=== PATIENT | female | born 2000 | race Caucasian/White ===

== ENCOUNTER 2023-08-22 16:14 | Observation (INO) | payer OTHER ==
[2023-08-22 17:08] VITALS: BMI 59.2
[2023-08-22] MEDS ORDERED: hydrALAZINE 20 MG/ML VIAL SLOW IVP PRN (17:28)
[2023-08-22] MEDS ORDERED: Ondansetron PF 4 MG/2 ML Vial IVP PRN (17:28)
[2023-08-22] MEDS ORDERED: Acetaminophen 500 MG TAB PO PRN (17:28)
[2023-08-22] MEDS ORDERED: Promethazine HCl 25 MG/ML VIAL IM PRN (17:28)
[2023-08-22 18:28] LABS: Hematocrit 33.4 % (34.9-44.5); Hemoglobin 11.4 g/dL (12.0-15.5); Mean Corpuscular HGB CONC 34.1 g/dL (32.0-36.0); Mean Corpuscular Hemoglobin 27.9 pg (27.0-33.0); Mean Corpuscular Volume 81.9 fL (81.6-98.3); Mean Platelet Volume 11.1 fL (7.4-10.4); Platelet Count 359 10x3/uL (150-450); RBC Distribution Width 13.7 % (11.5-14.5); Red Blood Cell (RBC) Count 4.08 10x6/uL (3.90-5.03); White Blood Cell (WBC) Count 11.7 10x3/uL (3.5-10.5)
[2023-08-22 18:35] LABS: Glucose 103 mg/dL (70-105)
[2023-08-22 18:42] LABS: ALT (SGPT) 88 U/L (8-55); AST (SGOT) 47 U/L (5-34); Albumin 2.6 g/dL (3.5-5.0); Alkaline Phosphatase 156 U/L (40-110); Anion Gap 13 mmol/L (10-20); BUN (Urea Nitrogen) 6 mg/dL (7.0-18.7); Bilirubin, Total 0.3 mg/dL (0.2-1.2); Calc. Creatinine Clearance 340 mL/min (70-130); Calcium 8.9 mg/dL (7.8-10.44); Carbon Dioxide 18 mmol/L (22-29); Chloride 107 mmol/L (98-107); Estimated GFR 127; Globulin 3.7 g/dL (2.4-3.5); Glucose 104 mg/dL (70-105); Potassium 4.3 mmol/L (3.5-5.1); Protein, Total 6.3 g/dL (6.0-8.3); Sodium 134 mmol/L (136-145)
[2023-08-22 19:03] LABS: HBsAg Index 0.19 S/CO (0-0.99); HIV (1/2) Antibody/Antigen Non-Reactive (NonReactive); HIV 1/2 INDEX 0.08 S/CO (<1.00); Hep B Surf Ag - L&D Non-Reactive S/CO (NonReactive)
[2023-08-22 19:07] LABS: Syphilis Antibody Index 27.33 S/CO (<1.00 Non-Reactive)
[2023-08-22] MEDS: metFORMIN 500 MG TAB PO SCH (19:43)
[2023-08-22 21:29] LABS: Syphilis Antibody REACTIVE (Nonreactive)
[2023-08-23] MEDS: metFORMIN 500 MG TAB PO SCH (08:35)
[2023-08-23] MEDS: Aspirin Chewable 81 MG TAB PO SCH (08:35)
[2023-08-23 13:06] VITALS: TEMP 98.4
[2023-08-23 17:14] VITALS: BP 118/75
== END 2023-08-23 18:47 | disposition home or self-care (01) ==
LOC: CSHLD 16:14 → CSHANTE 20:30
PROVIDERS: ADMIT Student in an Organized Health Care Education/Training Program; ATTEND Student in an Organized Health Care Education/Training Program
DX: O13.3 Gestational [pregnancy-induced] hypertension without significant proteinuria, third trimester (principal); O24.419 Gestational diabetes mellitus in pregnancy, unspecified control; O98.113 Syphilis complicating pregnancy, third trimester; O99.213 Obesity complicating pregnancy, third trimester; E66.01 Morbid (severe) obesity due to excess calories; O99.283 Endocrine, nutritional and metabolic diseases complicating pregnancy, third trimester; Z3A.35 35 weeks gestation of pregnancy; Z79.899 Other long term (current) drug therapy
CPT/HCPCS: 36415; 36416; 76815; 80053; 82570; 84156; 84443; 85027; 86593; 86780; 86850; 86900; 86901; 87340; 87389; 99285; G0378

== ENCOUNTER 2024-12-20 12:11 | Inpatient (IN) | payer OTHER ==
[2024-12-20 12:34] VITALS: BMI 56.6
[2024-12-20 13:16] LABS: Protein, Urine Random Quant 24.0 mg/dL (1-14)
[2024-12-20 13:22] LABS: #Basophils 0.03 10x3/uL (0.0-0.2); #Eosinophils 0.05 10x3/uL (0.0-0.5); #Monocytes 0.43 10x3/uL (0.0-1.1); #Neutrophils 5.65 10x3/uL (1.5-8.4); %Basophils 0.4 % (0.0-2.0); %Eosinophils 0.6 % (0.0-6.0); %Lymphocytes 21.4 % (18.0-47.0); %Monocytes 5.5 % (0.0-10.0); %Neutrophils 71.8 % (40.0-75.0); Hematocrit 30.6 % (34.9-44.5); Hemoglobin 9.9 g/dL (12.0-15.5); Mean Corpuscular Hemoglobin 26.8 pg (27.0-33.0); Mean Corpuscular Volume 82.7 fL (81.6-98.3); Platelet Count 308 10x3/uL (150-450); Red Blood Cell (RBC) Count 3.70 10x6/uL (3.90-5.03); White Blood Cell (WBC) Count 7.86 10x3/uL (3.5-10.5)
[2024-12-20 13:42] LABS: ALT (SGPT) 114 U/L (Less than 34); AST (SGOT) 84 U/L (11-34); Albumin 2.5 g/dL (3.1-4.5); Alkaline Phosphatase 136 U/L (40-110); Anion Gap 11 mmol/L (10-20); BUN (Urea Nitrogen) 6 mg/dL (7.0-18.7); Bilirubin, Total 0.3 mg/dL (0.3-1.2); Calc. Creatinine Clearance 357 mL/min (70-130); Calcium 8.5 mg/dL (7.8-10.44); Carbon Dioxide 20 mmol/L (22-29); Chloride 109 mmol/L (98-107); Globulin 3.7 g/dL (2.4-3.5); Glucose 97 mg/dL (70-105); Potassium 4.0 mmol/L (3.5-5.1); Sodium 136 mmol/L (136-145)
[2024-12-20] MEDS ORDERED: Carboprost 250 MCG/ML AMP IM PRN (13:44)
[2024-12-20] MEDS ORDERED: Ondansetron PF 4 MG/2 ML Vial IVP PRN ×2 (13:44→18:32)
[2024-12-20] MEDS ORDERED: Diphenoxylate HCl/Atropine Tablet PO PRN ×2 (13:44)
[2024-12-20] MEDS ORDERED: Acetaminophen 500 MG TAB PO PRN (13:44)
[2024-12-20] MEDS ORDERED: Famotidine/PF 20 mg/2ml Vial SLOW IVP PRN (13:44)
[2024-12-20] MEDS ORDERED: hydrALAZINE 20 MG/ML VIAL SLOW IVP PRN ×3 (13:44→13:47)
[2024-12-20] MEDS ORDERED: Bicitra 30 ML UDCUP PO PRN (13:44)
[2024-12-20] MEDS ORDERED: Tranexamic Acid 1,000 MG/10 ML VIAL IVP PRN (13:44)
[2024-12-20] MEDS ORDERED: Azithromycin 500 MG in Sodium Chloride 0.9% 250 ML 250 ML IVPB SCH (13:45)
[2024-12-20] MEDS ORDERED: Oxytocin 30 units/NS 500 ML 500 ML IV SCH (13:45)
[2024-12-20] MEDS ORDERED: Calcium Gluc 4.6 MEQ/10 ML (100 MG/ML) SLOW IVP PRN (13:47)
[2024-12-20 14:40] LABS: Hep B Surf Ag - L&D Non-Reactive S/CO (NonReactive)
[2024-12-20] MEDS: Magnesium Sulfate 20 gm/500 ml 20 GM/500 ML BAG IVPB SCH (14:55)
[2024-12-20] MEDS: hydrALAZINE 20 MG/ML VIAL SLOW IVP PRN (15:04)
[2024-12-20 15:07] LABS: Syphilis Antibody Index 21.95 S/CO (<1.00 Non-Reactive)
[2024-12-20 18:30] LABS: Analyzer IN Cardio CS NICU; Critical Notified By: CP.PH; RapidComm Collect By CBN; pH (Cord, venous) 7.261 (7.250-7.350)
[2024-12-20 18:32] LABS: Analyzer IN Cardio CS NICU; Critical Notified By: CP.PH; RapidComm Collect By CBN
[2024-12-20] MEDS ORDERED: Ketorolac Tromethamine 30 MG (1 mL) VIAL IVP PRN (18:32)
[2024-12-20] MEDS ORDERED: diphenhydrAMINE 50 MG/ML VIAL IVP PRN (18:32)
[2024-12-20] MEDS ORDERED: Meperidine HCl/PF 25 MG (1 mL) VIAL SLOW IVP PRN (18:32)
[2024-12-20] MEDS ORDERED: Ketorolac Tromethamine 30 MG (1 mL) VIAL IVP SCH (18:45)
[2024-12-20] MEDS ORDERED: Communication Order-Pharmacy FS SCH (18:45)
[2024-12-20] MEDS: Ondansetron PF 4 MG/2 ML Vial IVP PRN (19:48)
[2024-12-20 22:53] LABS: Syphilis Titer 1:4 Titer (Nonreactive)
[2024-12-21] MEDS: hydrALAZINE 20 MG/ML VIAL SLOW IVP SCH (00:56)
[2024-12-21 03:32] LABS: Hematocrit 30.3 % (34.9-44.5); Hemoglobin 9.7 g/dL (12.0-15.5); Mean Corpuscular Hemoglobin 26.6 pg (27.0-33.0); Mean Corpuscular Volume 83.2 fL (81.6-98.3); Platelet Count 287 10x3/uL (150-450); Red Blood Cell (RBC) Count 3.64 10x6/uL (3.90-5.03); White Blood Cell (WBC) Count 12.54 10x3/uL (3.5-10.5)
[2024-12-21 03:43] LABS: ALT (SGPT) 125 U/L (Less than 34); AST (SGOT) 107 U/L (11-34); Albumin 2.3 g/dL (3.1-4.5); Alkaline Phosphatase 127 U/L (40-110); Anion Gap 11 mmol/L (10-20); BUN (Urea Nitrogen) 4 mg/dL (7.0-18.7); Bilirubin, Total 0.3 mg/dL (0.3-1.2); Calc. Creatinine Clearance 376 mL/min (70-130); Calcium 7.7 mg/dL (7.8-10.44); Carbon Dioxide 19 mmol/L (22-29); Chloride 107 mmol/L (98-107); Globulin 3.4 g/dL (2.4-3.5); Glucose 103 mg/dL (70-105); Potassium 3.8 mmol/L (3.5-5.1); Sodium 133 mmol/L (136-145)
[2024-12-21] MEDS ORDERED: Lanolin Ointment 7 GM TUBE TOP PRN (05:58)
[2024-12-21] MEDS ORDERED: hydrALAZINE 20 MG/ML VIAL SLOW IVP PRN (05:58)
[2024-12-21] MEDS ORDERED: Simethicone Chewable 80 MG TAB PO PRN (05:58)
[2024-12-21] MEDS ORDERED: HYDROcodone/Acetaminophen 5/325 mg Tablet PO PRN ×2 (06:45)
[2024-12-21] MEDS: Enoxaparin 40 MG (0.4 mL) SYRINGE SC SCH (09:02)
[2024-12-21] MEDS: Furosemide 40 MG (4 mL) VIAL SLOW IVP SCH (10:51)
[2024-12-21] MEDS: Famotidine/PF 20 mg/2ml Vial ONE (20:26)
[2024-12-21] MEDS: Ferrous Sulfate 325 MG TAB PO SCH ×2 (20:26→20:32)
[2024-12-21] MEDS: Oxytocin 10 UNITS/ML VIAL ONE (20:27)
[2024-12-21] MEDS: Ondansetron PF 4 MG/2 ML Vial ONE (20:27)
[2024-12-21] MEDS: PHENYLEPHRINE-NS 100 MCG/ML 10 ML SYRINGE ONE ×2 (20:27)
[2024-12-21] MEDS: Ibuprofen 800 MG TAB PO SCH (20:32)
[2024-12-22 04:16] LABS: Hematocrit 32.0 % (34.9-44.5); Hemoglobin 10.1 g/dL (12.0-15.5); Mean Corpuscular Hemoglobin 26.9 pg (27.0-33.0); Mean Corpuscular Volume 85.1 fL (81.6-98.3); Platelet Count 381 10x3/uL (150-450); Red Blood Cell (RBC) Count 3.76 10x6/uL (3.90-5.03); White Blood Cell (WBC) Count 11.92 10x3/uL (3.5-10.5)
[2024-12-22 04:27] LABS: ALT (SGPT) 101 U/L (Less than 34); AST (SGOT) 58 U/L (11-34); Albumin 2.4 g/dL (3.1-4.5); Alkaline Phosphatase 138 U/L (40-110); Anion Gap 14 mmol/L (10-20); BUN (Urea Nitrogen) 8 mg/dL (7.0-18.7); Bilirubin, Total 0.2 mg/dL (0.3-1.2); Calc. Creatinine Clearance 313 mL/min (70-130); Calcium 8.1 mg/dL (7.8-10.44); Carbon Dioxide 21 mmol/L (22-29); Chloride 107 mmol/L (98-107); Globulin 3.5 g/dL (2.4-3.5); Glucose 107 mg/dL (70-105); Potassium 3.9 mmol/L (3.5-5.1); Sodium 138 mmol/L (136-145)
[2024-12-22] MEDS: Ibuprofen 800 MG TAB PO SCH (12:27)
[2024-12-22] MEDS: Furosemide 20 MG (2 mL) VIAL SLOW IVP SCH (12:33)
[2024-12-23] MEDS: Acetaminophen 325 MG TAB PO SCH (09:49)
[2024-12-23] MEDS: Furosemide 20 MG (2 mL) VIAL SLOW IVP SCH (09:50)
[2024-12-23 13:03] VITALS: BP 133/83; TEMP 98
== END 2024-12-23 16:45 | disposition home or self-care (01) | DRG 787 ==
LOC: CSHLD/OP 12:11 → CSHLD 17:04 → CSHPP 12-21 20:10
PROVIDERS: ADMIT Obstetrics & Gynecology; ATTEND Obstetrics & Gynecology
PROC: 10D00Z1 Extraction of Products of Conception, Low, Open Approach (ICD-10-PCS; principal; 2024-12-20)
PROC: 3E03329 Introduction of Other Anti-infective into Peripheral Vein, Percutaneous Approach (ICD-10-PCS; 2024-12-20)
DX: O14.14 Severe pre-eclampsia complicating childbirth (principal); O98.12 Syphilis complicating childbirth; O99.214 Obesity complicating childbirth; O34.211 Maternal care for low transverse scar from previous cesarean delivery; E66.813 Obesity, class 3; Z37.0 Single live birth; Z3A.34 34 weeks gestation of pregnancy; Z79.899 Other long term (current) drug therapy
CPT/HCPCS: 36415; 51702; 80053; 82570; 82805; 84156; 85025; 85027; 86593; 86780; 86850; 86900; 86901; 87340; 88307; 99285; J0360; J1308; J1650; J1940; J2274; J2405; J2550; J2590; J3010; J3475